=== PATIENT | female | born 1955 | race Caucasian/White ===

== ENCOUNTER → 2017-08-28 15:00 | Outpatient (CLI) | payer OTHER, SELFPAY ==
--- NOTE | 2017-08-28 15:03 | HPBI_ITS ---
MAMMOGRAPHY - BILATERAL SCREENING REASON FOR EXAM: Female, 61 years old. Routine annual screening examination. PERTINENT HISTORY: Non-contributory. Prior left stereotactic breast biopsy. TECHNIQUE: Digital bilateral breast danica (3D mammographic acquisition) in the CC and MLO projections. 2-D mediolateral oblique (MLO) and craniocaudad (CC) views of both breasts were obtained. CAD: Full Field Digital Mammography with Computer Added Detection was performed. COMPARISON: Comparison is made with prior study dated August 19, 2016 and April 17, 2014. FINDINGS: Breast Composition: The breasts are extremely dense, which lowers the sensitivity of mammography. There are no dominant masses or suspicious calcifications. Stable scattered bilateral calcifications. No other significant abnormalities are identified. There has been no significant change since the prior study. HPBI/SCREENING MAMM (CAD), BILAT IMPRESSION: Stable bilateral screening mammogram. Yearly follow-up mammogram recommended. (A) ASSESSMENT CATEGORY: BIRADS Category 2: Benign. A letter regarding these results will be sent to the patient by the facility within 30 days. Approximately 10% of breast cancers are not detected by mammography. A normal mammogram should not delay biopsy of a clinically suspicious abnormality. [id number] Electronically Signed: Inocencio Ballard MD at 9:14 EST Tel [phone], Service support ,
== END ==
PROVIDERS: Family Provider Family Medicine Geriatric Medicine; PCP Family Medicine Geriatric Medicine; Visit Provider Obstetrics & Gynecology
DX: Z12.31 Encounter for screening mammogram for malignant neoplasm of breast (principal)
CPT/HCPCS: 77063; 77067

== ENCOUNTER → 2017-09-26 08:11 | Outpatient (CLI) | payer OTHER, SELFPAY ==
--- NOTE | 2017-09-26 | IMM_PTH ---
PATIENT: BRANDAN THORNTON LOC: [facility] U#:[id number] AGE/SX: 69/F ROOM: RE09/26/[address]: Dr. Gibson Mraes MD : 1955 BED: DIS: SPEC #: [id number] RECD: 09/27/17 10:41 STATUS: AMANUEL REQ #: [id number] SONIA: 09/26/17 00:[address]: Gibson Mares DEPT: IMMUNOHISTOCHEMISTRY RECD BY: Jessica Hobson ENTERED: 09/27/17 10:46 SP TYPE: IMMUNO OTHR DR: Dr. Angelo Ivan MD Tissues: Arm, NOS Procedures: RCC (add) NAPSIN A (add) CK20 (add) CK5-6 (add) CK7 (add) CK8 (add) E-CAD (add) HEP PAR (add) HER2 ARGENIS (add) MAMM (add) VT (add) TTF1 (add) Pankeratin (add) GATA3 (add) P40 (add) ER (initial) [facility]YS[facility] IN[facility] [address] [address] SPECIMEN INFORMATION: Tissue Source: Right arm mass, needle core biopsy Clinical Info: Right arm mass Specimen Number: [id number] CPT code: 43499, 56711 x15 METHODOLOGY: Deparaffinized sections of prefer/formalin-fixed tissue or PAP/DQ stained slides are incubated with monoclonal/polyclonal antibodies/oligonucleotide probes. Localization is made via biotin free immunoperoxidase method. Appropriate controls are performed and reacted as expected. Results on target cell population are indicated in the following table: RESULTS: ANTIBODY / CLONE RESULT ER (6F11) positive (22%, weak) VT (1E2) negative (0%) Her-2neu (CB11) equivocal (2+) E-Cad (ECH-6) positive Mammaglobin (31A5) negative GATA3 (L50-823) positive AE1-3 (AE1/AE3/PCK26) positive CK7 (OV-TL12/30) positive CK8 (50wppxO42) positive CK20 (KS20.8) negative TTF-1 (8G7G3/1) negative Napsin A (Rabbit Polyclonal) negative (high background staining) HepPar (OCh1E5) negative RCC (PN-15) negative CK5-6 (D5 & 1684) positive P40 (BC28) positive These tests were developed and their performance characteristics determined by [facility]. They may not have been cleared or approved by the [place]. Food and Drug Administration. The FDA has determined that such clearance or approval is not necessary. 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 SJ:serg 09/27/17
--- NOTE | 2017-09-26 07:30 | MASS_PTH ---
PATIENT: BRANDAN THORNTON LOC: [facility] U#:[id number] AGE/SX: 69/F ROOM: RE09/26/[address]: Dr. Gibson Mares MD : 1955 BED: DIS: SPEC #: [id number] RECD: 09/26/17 10:21 STATUS: AMANUEL JEF #: [id number] SONIA: 09/26/17 07:[address]: Gibson Mares DEPT: SURGICAL PATHOLOGY RECD BY: Mark Richardson ENTERED: 09/26/17 12:24 SP TYPE: Mass OTHR DR: Dr. 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 See comment. MAXIMINO:serg 09/27/17 COMMENT Immunohistochemistry ([id number]) supports the above diagnosis. Please make reference to previous specimen ([id number]) left breast, lumpectomy with diagnosis of invasive well differentiated ductal carcinoma. Slides of previous specimen (breast lumpectomy) are reviewed and tumor in the present biopsy specimen shows different morphologic features than breast carcinoma. MICROSCOPIC DESCRIPTION Slides are reviewed. GROSS DESCRIPTION Received in fixative is one container labeled with the patient's name and designated needle core biopsy right arm mass. The specimen consists of one elongated fragment of rodriges soft tissue that measures 1.2 cm in length and 0.1 cm in diameter. The specimen is totally submitted in one cassette. / SJ:serg 09/26/17 TC:0 CPT: 69960
== END ==
PROVIDERS: Family Provider Family Medicine Geriatric Medicine; PCP Family Medicine Geriatric Medicine; Visit Provider Surgery
DX: R22.31 Localized swelling, mass and lump, right upper limb (principal)
CPT/HCPCS: 88305; 88341; 88342

== ENCOUNTER → 2017-10-09 10:36 | Outpatient (CLI) | payer OTHER, SELFPAY ==
--- NOTE | 2017-10-09 10:39 | MRI_ITS ---
STUDY: MRI UPPER EXTREMITY RIGHT HUMERUS WITH T WITHOUT CONTRAST REASON FOR EXAM: Female, 61 years old. Right upper arm mass. TECHNIQUE: Standardized fat and water weighted pulse sequences were obtained in all 3 orthogonal planes, pre-and post contrast administration. 6 ml of Gadavist contrast material was administered intravenously for the contrast portion of the examination. COMPARISON: Ultrasound August 14, 2017 . FINDINGS: There is a lobular 3.0 x 3.0 x 2.6 cm enhancing T2 signal hyperintensity mass of the skin and subcutaneous soft tissues, series 5 through 8 images 05/29 through . Mass extends to the deltoid muscle with mild edema and enhancement of the deltoid suggesting invasion. Normal visualized biceps and triceps. Normal visualized neurovascular bundles. Normal humerus. No fracture. MRI/Upper Ext No Joint W/WO Cont IMPRESSION: Enhancing mass of the skin and subcutaneous tissues extending to the deltoid musculature is increased size compared to recent ultrasound suggesting neoplastic malignancy. N.B. : The above information has been verbally conveyed by Shun Regan MD to Marcela Prince Referring Physician- ANALISA, on 10/09/2017 14:00:09 (ET). Electronically Signed: Shun Regan MD at 13:38 EDT , Service support , N.B. : The above information has been verbally conveyed by Shun Regan MD to Marcela Prince Referring Physician- ANALISA, on 10/09/2017 14:00:09 (ET).
[2017-10-09 11:45] LABS: CREATININE FINGERSTICK 0.7 mg/dL (0.55-1.02); EGFR FINGERSTICK > 60.0000 mL/min (>60)
== END ==
PROVIDERS: Family Provider Family Medicine Geriatric Medicine; PCP Family Medicine Geriatric Medicine; Visit Provider Surgery
DX: Z01.812 Encounter for preprocedural laboratory examination (principal); C44.622 Squamous cell carcinoma of skin of right upper limb, including shoulder
CPT/HCPCS: 73220; A9585

== ENCOUNTER → 2017-10-30 10:26 | Outpatient (CLI) | payer OTHER, SELFPAY ==
--- NOTE | 2017-10-30 10:28 | NM_ITS ---
CLINICAL: 61-year-old female with reported history of right upper extremity primary osseous neoplasm. WHOLE BODY 99m Tc MDP RADIONUCLIDE BONE SCINTIGRAPHY COMPARISON: MRI of the right upper extremity report 10/09/2017 FINDINGS: Following the intravenous administration of 25.1 mCi of 99m Tc MDP, whole body bone images reveal: 1. Increased radiopharmaceutical concentration is identified in the right proximal humeral metaphysis, the right frontal calvarium, left parietal calvarium, second lumbar vertebra posteriorly in the midline, the right posterior ilium and iliac crest. 2. Enhanced tracer concentration is defined in the left wrist. 3. The remaining skeletal structures are scintigraphically unremarkable with normal-appearing renal images and urinary bladder activity identified. NM/Bone Scan Whole Body IMPRESSION: 1. The increase in radiopharmaceutical concentration identified in the right proximal humeral metaphysis, bilateral calvarium, second lumbar vertebra, the right posterior ilium and right iliac crest is most consistent with osseous skeletal metastatic disease. 2. 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 Electronically Signed: Otoniel Taylor DO at 23:14 EDT Tel , Service support ,
== END ==
PROVIDERS: Family Provider Family Medicine Geriatric Medicine; PCP Family Medicine Geriatric Medicine; Visit Provider Orthopaedic Surgery
DX: R22.31 Localized swelling, mass and lump, right upper limb (principal)
CPT/HCPCS: 78306

== ENCOUNTER → 2017-11-07 15:01 | Outpatient (CLI) | payer OTHER, SELFPAY ==
[2017-11-07 15:40] LABS: Absolute Lymphocyte Count 0.86 X10^3/ul (0.83-4.51); Absolute Neutrophil Count 14.6 X10^3/uL (2.0-7.7); Basophil# 0.02 X10^3/uL; Basophil% 0.1 % (0-1); Eosinophil# 0.04 X10^3/uL; Eosinophils% 0.2 % (0-5); Hematocrit 33.7 % (37-47); Hemoglobin 10.7 g/dl (12.0-15.0); Lymphocyte # 0.86 X10^3/ul (4.0); Lymphocyte % 5.2 % (19-41); Mean Corp Hgb Conc 31.8 g/gl (32-36); Mean Corpuscular Hgb 27.9 pg (27.0-32.0); Mean Platelet Vol. 10.5 fl (6.2-12.0); Monocyte# 1.05 X10^3/uL; Monocyte% 6.3 % (0-10); Neutrophil # 14.57 X10^3/uL (2.7-7.7); Platelet Count 411 K/mm3 (150-450); RBC Distribution Width SD 41.8 fl (35.1-43.9); Red Blood Count 3.83 M/mm3 (4.2-5.4); White Blood Count 16.6 K/mm3 (4.4-11.0)
[2017-11-07 15:50] LABS: POSITIVE COUNT NO; POSITIVE DIFFERENTIAL NO; POSITIVE MORPHOLOGY NO
[2017-11-07 15:53] LABS: ALB/GLOB Ratio 0.5 RATIO (0.9-2.4); AST(SGOT) 111 U/L (15-37); Alanine Aminotransfer ALT/SGPT 184 U/L (13-56); Albumin, Serum 2.6 g/dL (3.2-5.0); Alkaline Phosphatase 709 U/L (45-117); Anion Gap 11 (5-15); BUN 12 mg/dL (7-18); BUN/Creat Ratio 17.3 RATIO (10-20); Calcium,Total 9.2 mg/dL (8.5-10.1); Chloride 101 mmol/L (98-107); EST Glomerular Filtration Rate 91 mL/min (>60); Est Glom Filt Rate - Afr Amer 110 mL/min (>60); Glucose 109 mg/dL (74-106); Potassium 3.6 mmol/L (3.5-5.1); Protein, Total 7.6 g/dL (6.4-8.2); Sodium Level 137 mmol/L (136-145)
--- NOTE | 2017-11-07 16:28 | CT_ITS ---
STUDY: CT ABDOMEN AND PELVIS WITH CONTRAST REASON FOR EXAM: Female, 61 years old. Abdominal pain. History of right arm sarcoma. RADIATION DOSAGE (If Supplied By Facility): CTDIvol = ( 12.46 ) mGy, DLP = ( 569.06 ) mGycm TECHNIQUE: Transaxial images were obtained from the dome of the diaphragm to the symphysis pubis without oral contrast. 100CC ml of Isovue 300 contrast was administered. Sagittal and coronal images were reconstructed. Individualized dose optimization techniques were used for this CT. COMPARISON: None. FINDINGS: The visualized lung bases are unremarkable. The visualized portions of the heart are within normal limits. 1.7 cm subcutaneous soft tissue mass just to the left of the xiphoid. Markedly abnormal liver shows widespread mass lesions in all segments in marked hepatomegaly. Findings are consistent with extensive metastatic disease. Individual lesions measure as much as 2.3 cm. Grossly normal gallbladder, pancreas, and spleen. Normal adrenal glands. Bilateral small simple renal cysts. Otherwise negative kidneys. Normal visualized stomach. Normal small intestine. There are multiple colonic diverticula consistent with diverticulosis. The appendix is visualized and appears normal. There is diffuse atherosclerotic calcification of the abdominal aorta, without a demonstrated aneurysm. Normal inferior vena cava. There is borderline retroperitoneal lymphadenopathy with enlarged nodes no greater than 10mm in the short axis diameter. Normal urinary bladder. Markedly enlarged and lobulated uterus consistent with fibroid replacement. 4.4 cm probable left ovarian or adnexal cyst. 4 cm soft tissue mass in the left midabdomen along the paracolic gutter. 2.2 similar soft tissue mass in the subcutaneous fat of the right buttocks consistent with soft tissue metastasis. 3.8 cm soft tissue metastasis in the right medial pelvic wing. CT/Abdomen/Pelvis WITH Contrast IMPRESSION: Extensive metastatic disease liver. Focal soft tissue metastases in the subcutaneous tissues as above, in the right pelvic wing, and in the left paracolic gutter. Electronically Signed: Matthieu Hernandez MD at 17:55 EDT , Service support ,
--- NOTE | 2017-11-07 16:32 | RAD_ITS ---
STUDY: X-RAY CHEST REASON FOR EXAM: Female, 61 years old. Chills. 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 Bone scan and CT scan August showed metastatic disease. TECHNIQUE: Single AP portable view of the chest. COMPARISON: 06/11/2004. FINDINGS: There is hyperinflation of the lungs consistent with chronic obstructive lung disease (COPD). There is a 5.4 cm mass in the left apex consistent with neoplasm. No focal infiltrates, no effusions. There is no demonstrated pleural abnormality. Normal size heart. Normal mediastinum and eamon. Normal visualized pulmonary arteries. Normal visualized aortic arch and descending thoracic aorta. Normal visualized thoracic spine. Normal visualized ribs, clavicles, and shoulders. There is no demonstrated abnormality of the visualized soft tissue structures of the upper abdomen. RAD/Chest PA and Lateral IMPRESSION: 5.4 cm mass in the left apex consistent with neoplasm. CT scan recommended. Electronically Signed: Matthieu Hernandez MD at 23:41 EDT , Service support ,
== END ==
PROVIDERS: Family Provider Family Medicine Geriatric Medicine; PCP Family Medicine Geriatric Medicine; Visit Provider Family Medicine Geriatric Medicine
DX: N39.0 Urinary tract infection, site not specified (principal); R10.9 Unspecified abdominal pain
CPT/HCPCS: 36415; 71046; 74177; 80053; 85025; 87086; 87088; 87633; Q9967